=== PATIENT | female | born 1995 | race Caucasian/White ===

== ENCOUNTER 2018-12-03 17:01 | Inpatient (IN) | payer OTHER, BC ==
[2018-12-03] MEDS ORDERED: Phenaphthazine-PH Test Paper VI ONE (17:45)
[2018-12-03 18:33] VITALS: BMI 33.7
[2018-12-03] MEDS ORDERED: Lactated Ringer's 1,000 ML IV ONE (18:33)
[2018-12-03] MEDS ORDERED: Oxytocin 30 UNIT 30 UNITS/500 ML BAG IV ONE (18:34)
[2018-12-03] MEDS ORDERED: OXYTOCIN/0.9 % NS 20 UNIT/1,000 ML BAG IV SCH (18:45)
[2018-12-03] MEDS: Lactated Ringer's 1,000 ML IV SCH (18:45)
[2018-12-03 19:10] VITALS: TEMP 98.6
[2018-12-03 19:56] LABS: BASO % 0.1 % (0.0-2.0); EOS % 0.2 % (0.0-4.0); HEMOGLOBIN 12.7 g/dL (12.0-16.0); LYMPH # 1.3 K/uL (1.0-4.3); LYMPH % 16.3 % (20.0-40.0); MEAN CELL VOLUME 98.4 fl (81.0-99.0); MEAN CORPUSCULAR HEMOGLOBIN 33.2 pg (27.0-31.0); MEAN CORPUSCULAR HGB CONC 33.7 g/dL (33.0-37.0); MEAN PLATELET VOLUME 9.6 fl (7.2-11.7); MONO # 0.4 K/uL (0.0-0.8); MONO % 5.1 % (0.0-10.0); NEUT # 6.1 K/uL (1.8-7.0); NEUT % 78.3 % (50.0-75.0); NRBC % 0.1 % (0.0-0.0); RBC 3.82 Mil/uL (3.80-5.20); RED CELL DISTRIBUTION WIDTH 13.6 % (11.5-14.5); WHITE BLOOD COUNT 7.8 K/uL (4.8-10.8)
[2018-12-04] MEDS ORDERED: Fentanyl/Bupivacaine HCl 250 ML EPI ONE (01:38)
[2018-12-04] MEDS: Lactated Ringer's 1,000 ML IV SCH (03:03)
--- NOTE | 2018-12-04 08:30 | OBADHP ---
Datetime: 12/03/2018 18:30 Admit Comment, IP Provider: 23 yo with IUP @ 40+4 weeks based on LMP OF 02/22/18 and confirmed on U/S presents to [facility] for loss of vaginal fluid per the vagina that began at 3pm today. Denies contr actions and vaginal bleeding. Endorses good movement. Denies shortness of breath, chest pain,d ysuria, diarrhea, fevers or chills. ROS negative except for stated above. OB history: Dr. Matias- Last appointment was Friday - 11/30/18 PMH: denies Social : denies alcohol, smoking history of illcit drug use Allergies: Denies Medications: PNV Family history: DM2 Labs: HIV: negative ; RPR: non-reactive; Rubella: immune; ABO: O+; Hep B ag: negative; GBS: negati ve P.E: vitals are stable Heart: S1 and S2 appreciated. No murmurs Lungs: Clear bilaterally. No Rhonchi, rales or wheezes Abdomen: Soft, Gravid, non-tender to palpation. +BS Extremities: +2 dorsalis pedis pulses bilaterally. No lower extremity swelling bilaterally. SVE: Dr. Goode- Bedside Ultrasound: Cephalic presentation. Assessment: 23 yo with IUP @ 40+4 weeks admitted for labor. Plan: - Admit to L and D - CBC , T _ S - Reactive NST - SVE: 10cm/ 100%/ 0 - Anesthesia consult - Lactated Ringers Discussed with Dr. Russel Argueta, PGY 1 Pelvic Type - PN: Adequate Extremities - PN: Normal Abdomen - PN: Normal Back - PN: Normal Breast - PN: Not Done Lungs - PN: Normal Heart - PN: Normal Thyroid - PN: Normal Neurologic - PN: Normal HEENT - PN: Normal General - PN: Normal Membranes, Provider: Ruptured Vital Signs Provider: Reviewed; Within Normal Limits IP Chief Complaint: Suspected ruptured membranes Dilatation, Provider: 3 Effacement, Provider: 75 Station, Provider: -1 Genitourinary Exam: Normal DTRs - PN: Normal EGA AdmitDate IP: 40.4 IP Adm Impression: Term, intrauterine IP Admit Plan: Admit to unit; Initiate labor protocol Datetime: 12/03/2018 18:12 FHR - Baseline A Provider: 175 NICHD Variability Prov Fetus A: Moderate 6-25bpm NICHD Accel Fetus A IP Provider: [id number] FHR Category Provider Fetus A: Category I NICHD Decel Fetus A IP Provider: None
[2018-12-04] MEDS ORDERED: Benzocaine/Menthol SPRAY TOP PRN ×2 (10:40→11:18)
[2018-12-04] MEDS ORDERED: Oxycodone/Acetaminophen 5/325 mg Tab PO PRN ×4 (10:40→11:18)
--- NOTE | 2018-12-04 11:08 | OBDS ---
DELIVERY PERSONNEL Delivery Doctor: Dr. Mora Windshield Technician: Chiquis Fischer RN Anesthesiologist: Dr. Nix MATERNAL INFORMATION Delivery Anesthesia: Epidural Medications in Delivery: Pitocin 30 mu/500 mL LR Estimated Blood Loss (ml): 50 Placenta Cultured: No Maternal Complications: None Provider Comments: 23 year old G1 admitted to the hospital for PROM. Progressed to normal spontaneou s vaginal delivery of live male infact, position PARVEZ over intact perineum with epidural anesthesia. I nfant placed on maternal abdomen initially but was soon after taken to the warmer due to poor respira tory effort. Received approximately 30 seconds of PPV and responded well. Apgras 6 _ 9. was th en taken back to the patient and placed skin to skin. Terminal meconium, nuchal cord x1. Spontaneous delivery of placenta with 3-vessel cord. Perineum intact. QBL 50cc. Abena Mora MD OB Fellow The patinet was seen with the resident Mark payne with the note LABOR SUMMARY EDC: 11/29/2018 00:00 No. Babies in Womb: 1 Attempted: No Labor Anesthesia: Epidural LABOR INFORMATION Reason for Induction: Not Applicable Onset of Labor: 12/04/2018 06:23 Complete Dilatation: 12/04/2018 06:23 Oxytocin: N/A Group B Beta Strep: Negative Antibiotics # of Doses: 0 Antibiotics Time of Last Dose: n/a Steroids Given: None Reason Steroids Not Administered: Not Applicable MEMBRANES Membranes Rupture Method: Spontaneous Rupture of Membranes: 12/03/2018 15:00 Length of Rupture (hrs): 18.00 Amniotic Fluid Color: Clear Amniotic Fluid Amount: Small Amniotic Fluid Odor: Normal STAGES OF LABOR Stage 1 hrs: 0 Stage 1 min: 0 Stage 2 hrs: 2 Stage 2 min: 37 Stage 3 hrs: 0 Stage 3 min: 4 Total Time in Labor hrs: 2 Total Time in Labor min: 41 VAGINAL DELIVERY Episiotomy: None Laceration Extension: N/A Laceration Type: None Laceration Repair: Not Applicable Initial Vag Sponge Count: 5 Final Vag Sponge Count: 5 Initial Vag Sharps Count: 0 Final Vag Sharps Count: 0 Sponge Count Correct: N/A Sharps Count Correct: N/A BABY A INFORMATION Delivery Date/Time: 12/04/2018 09:00 Method of Delivery: Vaginal Born in Route : No : N/A Forceps: N/A Vacuum Extraction: N/A Shoulder Dystocia : No SHOULDER DYSTOCIA BABY A Delivery Date/Time: 12/04/2018 09:00 PRESENTATION/POSITION BABY A Presentation: Cephalic Cephalic Presentation: Vertex Breech Presentation: N/A PLACENTA INFORMATION BABY A Placenta Delivery Time : 12/04/2018 09:04 Placenta Method of Delivery: Spontaneous Placenta Status: Delivered SCORES BABY A Heart Rate 1 min: >100 bpm Resp Effort 1 min: Absent Reflex Irritability 1 min: Cough or Sneeze or Pulls Away Muscle Tone 1 min: Active Motion Color 1 min: Blue/Pale Resuscitation Effort 1 min: Tactile Stimulation; PPV/NCPAP SCORE 1 MIN: 6 Heart Rate 5 min: >100 bpm Resp Effort 5 min: Good Cry Reflex Irritability 5 min: Cough or Sneeze or Pulls Away Muscle Tone 5 min: Active Motion Color 5 min: Body [place], Extremities Blue Resuscitation Effort 5 min: N/A SCORE 5 MIN: 9 INFANT INFORMATION BABY A Gestational Age at Delivery: 40.5 Gestational Status: Term Outcome : Liveborn Condition : Stable Sex: Male CORD INFORMATION BABY A No. Cord Vessels: 3 Nuchal Cord : Around Neck x1, Loose Cord Blood Taken: Yes Infant Suction: None
--- NOTE | 2018-12-05 08:25 | OBPPN ---
Datetime: 12/05/2018 08:22 PP Pain Prov: Within normal limits PP Nausea Prov: Denies PP Flatus Prov: Yes PP Breasts Prov: Not Done PP Heart Prov: Normal PP Lungs Prov: Normal PP Abdomen/Uterus Prov: Normal PP Lochia Prov: Not Done PP Vulva/Perineum Prov: Not Done PP CVA Tenderness Prov: Normal PP Extremities Prov: Normal PP Impression Prov: Normal progression PP Progress Note Prov: Patient doing well without complaints reports minimal lochia and ambulating t olerating diet voiding without difficulty Vital signs stable afebrile Uterus firm below the umbilicus Extremities no Homans day #1 Encourage ambulation analgesia regular diet anticipate discharge in a.m. Vital Signs Provider PP: Reviewed
--- NOTE | 2018-12-06 13:32 | OBDCSUM ---
Datetime: 12/06/2018 13:30 Discharged to, Provider: Home Follow up at, Provider: Marvin Garay Instr Activity: Normal activity Disch Instr Diet: Regular Discharge Instructions, Provider: Routine instructions given Discharge Diagnosis, Provider: Term Delivered Discharge Time: 12/06/2018 13:30 Follow up in weeks, Provider: 6weeks Disch Referrals: None Contraception discussed, Prov: Yes Contraception after Delivery: Undecided
--- NOTE | 2018-12-06 13:32 | OBPPN ---
Datetime: 12/06/2018 13:29 PP Pain Prov: Within normal limits PP Nausea Prov: Denies PP Flatus Prov: Yes PP BM Prov: Yes PP Breasts Prov: Normal PP Heart Prov: Normal PP Lungs Prov: Normal PP Abdomen/Uterus Prov: Normal PP Lochia Prov: Normal PP Vulva/Perineum Prov: Normal PP CVA Tenderness Prov: Normal PP Extremities Prov: Normal PP C/S Incision Prov: Not Applicable PP Progress Prov: Normal PP Comments Phys Exam Prov: Abdomen soft, nontender, nondistended Uterus firm, below umbilicus No deep calf tenderness bilaterally PP Impression Prov: Normal progression PP Plan Prov: Continue present management; Discharge PP Progress Note Prov: day #2 status post , patient recovering well Patient discharged home today with precautions Patient will follow-up in office in 6 weeks for visit Discussed plan with patient all patient questions answered. IP PP Procedures: None Vital Signs Provider PP: Reviewed; Within Normal Limits
[2018-12-06 22:47] VITALS: BP 120/69; PULSE 67; RESP 20; O2SAT 97
== END 2018-12-06 17:10 | disposition home or self-care (01) | DRG 807 ==
LOC: H.EROB2 17:01 → H.L&D 18:33 → H.OB/GYN 12-04 10:30
PROVIDERS: ADMIT Obstetrics & Gynecology; ATTEND Obstetrics & Gynecology
PROC: 4A1HXCZ Monitoring of Products of Conception, Cardiac Rate, External Approach (ICD-10-PCS; 2018-12-03)
PROC: 10E0XZZ Delivery of Products of Conception, External Approach (ICD-10-PCS; principal; 2018-12-04)
DX: O42.02 Full-term premature rupture of membranes, onset of labor within 24 hours of rupture (principal); Z37.0 Single live birth; Z3A.40 40 weeks gestation of pregnancy; O69.81X0 Labor and delivery complicated by cord around neck, without compression, not applicable or unspecified; O77.0 Labor and delivery complicated by meconium in amniotic fluid